=== PATIENT | female | born 1995 | race Caucasian/White ===

== ENCOUNTER → 2017-07-26 | Outpatient (CLI) | payer BC, MEDICAID, OTHER ==
[~2017-07-26] MED LIST: ACET1TAB43 PO; DOCU100C37 PO; FERR325T18 PO; IBUP-1773 PO; ONDA-42 SL
--- NOTE | 2017-07-26 14:16 | Diagnostic Imaging Report ---
TECHNIQUE: Multiple real-time grayscale images were obtained over the gravid uterus. COMPARISON: None FINDINGS: There are no prior studies available for comparison. This study was technically difficult due to the patient's body habitus. There is a single live fetus in transverse presentation. heart motion was noted and a rate of 160 bpm was recorded. There are no abnormalities identified although the intracranial contents and the heart are not well imaged. I would recommend that a short-term (4-6 weeks) follow-up exam be performed for further evaluation. The growth parameters are fairly uniform. The placenta is anterior and there is no previa. The amniotic fluid volume is within normal limits. IMPRESSION: 1. There is a single live fetus of approximately 20 weeks 2 days gestation +/-1.5 weeks. The EDC is December 04, 2017. 2. There are no abnormalities identified, but the heart and intracranial contents are not well visualized. Recommendations as above. 3. The growth parameters are fairly uniform. Biometrical measurements are as follows: Biparietal 5.0 cm, age 21 weeks 1 days. Head circumference 18.6 cm, age 21 weeks 0 days. Abdominal circumference 16.2 cm, age 21 weeks 3 days. Femur length 3.6 cm, age 21 weeks 4 days. Sonographic estimate age: 21 weeks 2 days. Sonographic estimated date of delivery: 12/04/17. Estimated Weight: 414 gm (+/- 61 gm). LMP percentile: 77%. heart rate: 160 beats per minute. number: 1 of 1. Dictated by: Dictated on workstation # [id number]
== END ==
LOC: RAD 11:58
PROVIDERS: ATTEND Obstetrics & Gynecology
DX: Z34.92 Encounter for supervision of normal pregnancy, unspecified, second trimester (principal); Z3A.20 20 weeks gestation of pregnancy
CPT/HCPCS: 76805

== ENCOUNTER 2017-12-02 18:55 | Inpatient (IN) | payer MEDICAID ==
[~2017-12-02] VITALS: Ht 165.1 cm; Wt 99.8 kg
--- OUTSIDE RECORDS SUMMARY | 2017-12-02 18:59 | XMS REPORT | Clinical Summary ---
Author Author [facility] Organization [facility] Address Unknown Phone Unavailable Care Team Providers Care Autopsy Pathologist Name Role Phone PCP Unavailable Source Comments Some departments are not documenting in the electronic medical record. If you do not see the information that you expected, contact Release of Information in the Health Information Management department at [phone] for further assistance in locating additional records.[facility] Allergies Not on File Current Medications No known medications Active Problems Not on file Social History Tobacco Use Types Packs/Day Years Used Date Never Assessed Sex Assigned at Date Recorded Not on file Last Filed Vital Signs Not on file Plan of Treatment Health Maintenance Due Date Last Done Comments PHYSICAL (COMPREHENSIVE) 2000 EXAM HPV VACCINES (1 of 3 - 2004 Female 3-dose series) PERTUSSIS VACCINE 2004 HIV SCREENING 2008 TETANUS VACCINE 2010 CERVICAL CANCER SCREENING 2014 INFLUENZA VACCINE 09/11/2017 Results Not on filefrom Last 3 Months
--- OUTSIDE RECORDS SUMMARY | 2017-12-02 18:59 | XMS REPORT ---
Author Author JP THOMAS Organization [facility] Address [address] [place] [address] Care Team Providers Care Firmware Manager Name Role Phone DELIO THOMASICE Unavailable PROBLEMS Type Condition ICD9-CM Code UQP24-TW Code Onset Dates Condition Status SNOMED Code Problem Irregular menstrual cycle 626.4 Active 68713322 Problem General counseling for prescription of oral contraceptives V25.01 Active 430178611560257 Problem Screening examination for venereal disease V74.5 Active 922512450 Problem Asthma, unspecified, unspecified status 493.90 Active 71003869 Problem General counseling for initiation of other contraceptive measures V25.02 Active [id number] ALLERGIES Substance Reaction Event Type Date Status N.K.D.A. Unknown Non Drug Allergy Jan, Unknown SOCIAL HISTORY No smoking Hx information available PLAN OF CARE Activity Details Follow Up prn Reason: VITAL SIGNS Height 66 in 2016-02-07 Temperature 97.9 degrees Fahrenheit 2016-02-07 Heart Rate 86 bpm 2016-02-07 Respiratory Rate 18 2016-02-07 Blood pressure systolic 122 mmHg 2016-02-07 Blood pressure diastolic 74 mmHg 2016-02-07 MEDICATIONS Medication Instructions Dosage Frequency Start Date End Date Duration Status Zyrtec Allergy 10 MG Orally Once a day 1 tablet 24h Jan, Feb, 30 day(s) Active Flonase Allergy Relief 50 MCG/ACT Nasally Once a day 1 spray in each nostril 24h Jan, 30 day(s) Active RESULTS No Results PROCEDURES Procedure Date Ordered Related Diagnosis Body Site Office Visit, Est Pt., Level 3 Feb 07, 2016 IMMUNIZATIONS No Known Immunizations
--- OUTSIDE RECORDS SUMMARY | 2017-12-02 18:59 | XMS REPORT ---
Author Author JP THOMAS Organization [facility] Address [address] [place] [address] Care Team Providers Care Product Manager E [employer] Name Role Phone DELIO THOMASICE Unavailable PROBLEMS Type Condition ICD9-CM Code AXI39-MR Code Onset Dates Condition Status SNOMED Code Problem Asthma, unspecified, unspecified status 493.90 Active 59695896 Problem Irregular menstrual cycle 626.4 Active 57080518 Problem Screening examination for venereal disease V74.5 Active 096933054 Problem General counseling for prescription of oral contraceptives V25.01 Active [id number] Problem General counseling for initiation of other contraceptive measures V25.02 Active [id number] ALLERGIES Substance Reaction Event Type Date Status N.K.D.A. Unknown Non Drug Allergy Feb, Unknown SOCIAL HISTORY No smoking Hx information available PLAN OF CARE Activity Details Follow Up prn Reason: VITAL SIGNS Height 66 in 2016-02-15 Weight 192 lbs 2016-02-15 Temperature 98.1 degrees Fahrenheit 2016-02-15 Heart Rate 88 bpm 2016-02-15 Respiratory Rate 18 2016-02-15 BMI 30.99 kg/m2 2016-02-15 Blood pressure systolic 132 mmHg 2016-02-15 Blood pressure diastolic 73 mmHg 2016-02-15 MEDICATIONS Medication Instructions Dosage Frequency Start Date End Date Duration Status Flonase Allergy Relief 50 MCG/ACT Nasally Once a day 1 spray in each nostril 24h Jan, 30 day(s) Active Amoxicillin 500 MG Orally every 12 hrs 1 tablet 12h Feb, Feb, 10 day(s) Active PredniSONE 20 MG Orally Once a day 2 tablet 24h Feb, Feb, 5 days Active Sprintec 28 0.25-35 MG-MCG Orally Once a day 1 tablet 24h 15 Jul, 2014 28 day(s) Active Zyrtec Allergy 10 MG Orally Once a day 1 tablet 24h Jan, Feb, 30 day(s) Active RESULTS No Results PROCEDURES Procedure Date Ordered Related Diagnosis Body Site Office Visit, Est Pt., Level 3 Feb 15, 2016 IMMUNIZATIONS No Known Immunizations
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
[2017-12-02] MEDS ORDERED: LACTATED RINGERS 1,000 ML IV SCH (19:06)
[2017-12-02 19:15] VITALS: BP_SYST 128; BP_SYST 132; BP_DIAS 75; BP_DIAS 76
[2017-12-02 19:45] LABS: BILIRUBIN,URINE NEGATIVE (NEGATIVE); CLARITY,URINE CLEAR; COLOR,URINE YELLOW; GLUCOSE, URINE (UA) NEGATIVE (NEGATIVE); KETONES,URINE NEGATIVE (NEGATIVE); LEUKOCYTE ESTERASE ,URINE 2+ (NEGATIVE); NITRITE,URINE NEGATIVE (NEGATIVE); PH,URINE 6.5 (5-9); PROTEIN,URINE NEGATIVE (NEGATIVE); UROBILINOGEN,URINE NORMAL (NORMAL)
[2017-12-02 19:47] LABS: BASOPHILS % (AUTO) 0 % (0-10); EOSINOPHILS % (AUTO) 0 % (0-10); HEMATOCRIT 30 % (35-52); HEMOGLOBIN 10.5 G/DL (11.5-16.0); LYMPHOCYTES # (AUTO) 2.1 X 10^3 (1.0-4.0); LYMPHOCYTES % (AUTO) 24 % (12-44); MEAN CORPUSCULAR HEMOGLOBIN 31 PG (25-34); MEAN CORPUSCULAR HGB CONC 35 G/DL (32-36); MEAN CORPUSCULAR VOLUME 89 FL (80-99); MEAN PLATELET VOLUME 12.4 FL (7.4-10.4); MONOCYTES # (AUTO) 0.7 X 10^3 (0.0-1.0); MONOCYTES % (AUTO) 9 % (0-12); NEUTROPHILS # (AUTO) 5.8 X 10^3 (1.8-7.8); NEUTROPHILS % (AUTO) 67 % (42-75); PLATELET COUNT 156 10^3/uL (130-400); RED BLOOD COUNT 3.42 10^6/uL (4.35-5.85); RED CELL DISTRIBUTION WIDTH 14.1 % (10.0-14.5); WHITE BLOOD COUNT 8.6 10^3/uL (4.3-11.0)
[2017-12-02 19:52] LABS: BACTERIA,URINE FEW /HPF
[2017-12-02] MEDS ORDERED: MISOPROSTOL 100 MCG (CYTOTEC) TAB PO ONE (20:00)
[2017-12-02] MEDS ORDERED: FLU QUADRIvalent (5+ YOA) 2018-2019 (AFLURIA) 0.5 ML IM ONE (20:30)
[2017-12-02] MEDS: D5 LR IV SOLUTION 1,000 ML IV SCH (20:30)
[2017-12-02 21:00] VITALS: BP 132/76
[2017-12-02 22:00] VITALS: BP 133/76
--- NOTE | 2017-12-02 22:17 | History & Physical-OB ---
OB - Chief Complaint & HPI Date/Time Date of Admission: Date of Admission: Dec 02, 2017 at 6:55 pm Date seen by a Provider: Dec 02, 2017 Time Seen by a Provider: 22:20 Chief Complaint/History OB-Reason for Admission/Chief: Induction of Labor Hx : 2 Hx Para: 1 Expected Date of Delivery: Dec 08, 2017 Gestational Age in Weeks: 39 Gestational Age in Days: 1 Admission Nurse Assessment Rev: Yes History of Labs A pos Antibody neg RI RPR NR HBsAg NR HIV NR GC neg GBS neg Allergies and Home Medications Allergies Coded Allergies: No Known Drug Allergies (Unverified , 12/09/13) Home Medications Ferrous Sulfate 325 Mg Tablet, 325 MG PO DAILY@08 Prescribed by: LUIS CASTILLO on 07/07/15 0938 Patient Home Medication List Home Medication List Reviewed: Yes OB - History Hx of Present Care: Yes Ultrasounds: Normal mid trimester US Obstetrical Complications: None Medical Complications: None Delivery History Hx Blood Disorders: No Adverse Rxn to Tranfusion: No Patient Past Medical History n/a Social History/Family History HIV/AIDS: No Recent Infectious Disease Expo: No Sexually Transmitted Disease: No Alcohol Use: Denies Use Recreational Drug Use: No Immunizations Hepatitis B: Yes OB - Admission Exam Physical Exam Vitals: Vital Signs HEENT: NCAT Heart: Rhythm Normal Lungs: Clear Abdomen: Gravid Extremities: Normal Reflexes: Normal Cervical Dilatation: 2cm Effacement: 75% Station: -1 Membranes: Intact Heart Rate: 130's Accelerations: Accelerations Present Decelerations: No Decelerations Short Term Variability: Present Water Systems Designer Variability: Average (6-25) Contractions on Admission: < 5 Minutes Apart Intensity: Mild Labs Laboratory Tests Test 12/02/17 18:55 12/02/17 19:25 Range/Units Urine Color YELLOW Urine Clarity CLEAR Urine pH 6.5 5-9 Urine Specific [place] 1.010 L 1.016-1.022 Urine Protein NEGATIVE NEGATIVE Urine Glucose (UA) NEGATIVE NEGATIVE Urine Ketones NEGATIVE NEGATIVE Urine Nitrite NEGATIVE NEGATIVE Urine Bilirubin NEGATIVE NEGATIVE Urine Urobilinogen NORMAL NORMAL MG/DL Urine Leukocyte Esterase 2+ H NEGATIVE Urine RBC (Auto) NEGATIVE NEGATIVE Urine RBC NONE /HPF Urine WBC NONE /HPF Urine Squamous Epithelial Cells 10-25 H /HPF Urine Crystals NONE /LPF Urine Bacteria FEW H /HPF Urine Casts NONE /LPF Urine Mucus NEGATIVE /LPF Urine Culture Indicated NO White Blood Count 8.6 4.3-11.0 10^3/uL Red Blood Count 3.42 L 4.35-5.85 10^6/uL Hemoglobin 10.5 L 11.5-16.0 G/DL Hematocrit 30 L 35-52 % Mean Corpuscular Volume 89 80-99 FL Mean Corpuscular Hemoglobin 31 25-34 PG Mean Corpuscular Hemoglobin Concent 35 32-36 G/DL Red Cell Distribution Width 14.1 10.0-14.5 % Platelet Count 156 130-400 10^3/uL Mean Platelet Volume 12.4 H 7.4-10.4 FL Neutrophils (%) (Auto) 67 42-75 % Lymphocytes (%) (Auto) 24 12-44 % Monocytes (%) (Auto) 9 0-12 % Eosinophils (%) (Auto) 0 0-10 % Basophils (%) (Auto) 0 0-10 % Neutrophils # (Auto) 5.8 1.8-7.8 X 10^3 Lymphocytes # (Auto) 2.1 1.0-4.0 X 10^3 Monocytes # (Auto) 0.7 0.0-1.0 X 10^3 Eosinophils # (Auto) 0.0 0.0-0.3 10^3/uL Basophils # (Auto) 0.0 0.0-0.1 10^3/uL OB - Assessment/Plan/Diagnosis Assessment Assessment: active labor Admission Dx 22 yo @ 39 weeks Elective induction GBS neg Admission Status: Inpatient Order (span 2 midnights) Reason for Inpatient Admission: induciton of labor Plan Plan: Induction LUIS CASTILLO DO Dec 02, 2017 10:17 pm
[2017-12-02] MEDS: CATHETER FLUSH 10 ML SYR IV SCH (22:52)
[2017-12-02 23:00] VITALS: BP 132/90
[2017-12-03] VITALS (40 sets, daily range): BP systolic 102–146; BP diastolic 53–85
[2017-12-03] MEDS: MISOPROSTOL 100 MCG (CYTOTEC) TAB PO SCH ×2 (00:24→02:43)
[2017-12-03] MEDS: D5 LR IV SOLUTION 1,000 ML IV SCH ×2 (04:25→11:49)
[2017-12-03] MEDS ORDERED: OXYTOCIN/NORMAL SALINE 500 ML IV SCH ×2 (09:06→14:07)
[2017-12-03] MEDS ORDERED: OXYTOCIN/NORMAL SALINE 500 ML IV ONE (09:07)
[2017-12-03] MEDS ORDERED: LIDOCAINE/EPI 2% 1:200,00 (XYLOCAINE) 10 ML VIAL ONE (11:06)
[2017-12-03] MEDS ORDERED: SUFENTA 0.6MCG/ML BUPIVA 0.125 100 ML ONE (11:07)
[2017-12-03] MEDS ORDERED: fentaNYL INJECTION 100 MCG/2 ML AMP ONE (11:33)
[2017-12-03] MEDS: CATHETER FLUSH 10 ML SYR IV SCH (11:49)
--- NOTE | 2017-12-03 14:12 | OB Labor & Delivery Record ---
L&D History Date of Service Date of Service: Dec 03, 2017 History Expected Date of Delivery: Dec 08, 2017 Gestational Age in Weeks: 39 Hx : 2 Hx Para: 1 Complications Events: Routine care Operative Indications (Cesarea: N/A-Vaginal Delivery Intrapartal Events: None L&D Stage1 Stage One Onset of Labor - Date: Dec 03, 2017 Monitors and Tracing Monitor Mode: External Heart Rate: 140 Monitor Decelerations: None Station: -2 Short Term Variability: Present Presentation: Vertex Vital Signs VS - Last 72 Hours, by Label 12/02/17 12/02/17 12/02/17 12/02/17 19:15 21:00 22:00 23:00 Temp 98.2 Pulse 85 78 77 81 Resp 18 18 18 18 B/P (MAP) 128/75 (92) 132/76 (94) 133/76 (95) 132/90 (104) O2 Delivery Room Air Room Air Room Air Room Air 12/03/17 12/03/17 12/03/17 12/03/17 00:00 01:00 02:00 03:00 Temp 97.7 Pulse 77 76 71 85 Resp 18 18 18 18 B/P (MAP) 122/71 (88) 120/66 (84) 123/69 (87) 136/75 (95) O2 Delivery Room Air Room Air Room Air Room Air 12/03/17 12/03/17 12/03/17 12/03/17 04:00 04:25 05:00 06:00 Temp 97.6 Pulse 76 75 77 Resp 18 18 18 B/P (MAP) 127/85 (99) 122/76 (91) 118/80 (93) O2 Delivery Room Air Room Air Room Air 12/03/17 07:00 Pulse 76 Resp 18 B/P (MAP) 130/72 (91) O2 Delivery Room Air Rupture of Membranes Spontaneous Ruture of Membrane: No Amniotic Membrane Rupture Time: 08:20 Amniotic Membrane Fluid Desc.: Clear Vaginal Bleeding Description: Normal Show Induction/Anesthesia Epidural Cath Placement - Time: 1200 L&D Stage2 Stage Two Stage II Date: Dec 03, 2017 Monitors and Tracing Monitor Mode: External Heart Rate: 140 Monitor Accelerations: Uniform Monitor Decelerations: Variable Longterm Variability: Average (6-10) Short Term Variability: Present Position: Right Occiput Anterior Presentation: Vertex Cord Descript/Complications Cord Vessel Description: 3 Vessels Delivery Type Infant Delivery Method: Spontaneous Vaginal Episiotomy/Perineal Laceration Laceraction(s)/Extensions: Yes Degree (describe repair) bilateral periurethral lac repaired using 3-0 rapide vicryl suture in usual fashion. Condition of Delivery 1 minute Comment: 8 5 minute Comment: 9 Notes male weight pending Condition of Condition of Infant: Living Exam: No Observed Abnormalities Resuscitation Resuscitation: N/A - Spontaneous Resp L&D Stage3 Stage Three Stage III Date: Dec 03, 2017 Pictocin Pitocin Administration Comment: 30 mu / wide open at delivery of placenta Placenta Delivery Placenta Delivery: Spontaneous Delivery Summary Summary Estimated blood loss (mL): 300 Attending at delivery: Luis Castillo DO Condition of Delivery Examined: Cervix Examined, Uterus Explored Post Hemorrhage: No Condition of Mother stable Condition of (s) stable LUIS CASTILLO DO Dec 03, 2017 2:12 pm
[2017-12-03] MEDS ORDERED: DIBUCAINE (NUPERCAINAL) 1% OINT 30 GM TOP PRN (14:15)
[2017-12-03] MEDS ORDERED: WITCH HAZEL(TUCKS) 40 EA JAR TOP PRN (14:15)
[2017-12-03] MEDS ORDERED: MEASLES,MUMPS,RUBELLA 1 EA INJ SQ ONE (14:15)
[2017-12-03] MEDS ORDERED: BENZOCAINE/MENTHOL (DERMOPLAST) 56 ML CAN TP PRN (14:15)
[2017-12-03] MEDS ORDERED: HYDROcodone/APAP 5 MG/325 MG (LORTAB) TAB PO PRN (14:15)
[2017-12-03] MEDS ORDERED: TETANUS,DIPTH,PERTUSS P/F (BOOSTRIX) 0.5 ML VIAL IM ONE (14:15)
[2017-12-03] MEDS: IBUPROFEN 600 MG (MOTRIN) TAB PO SCH ×2 (14:33→21:05)
[2017-12-03] MEDS ORDERED: LACTATED RINGERS 1,000 ML IV ONE (14:49)
[2017-12-03] MEDS ORDERED: METOCLOPRAMIDE INJ 10 MG/2 ML (REGLAN) IV PRN (15:00)
[2017-12-03] MEDS ORDERED: ONDANSETRON 4 MG/2 ML (SDV) Z0FRAN IV PRN (15:00)
[2017-12-03] MEDS ORDERED: NALOXONE 0.4 MG/ML 1 ML (NARCAN) VIAL IV PRN ×2 (15:00)
[2017-12-03] MEDS ORDERED: EPIDURAL (SUFENTA 0.6MCG/ML BUPIVA 0.125%) 100 ML BAG EPI PRN (15:00)
[2017-12-03] MEDS ORDERED: diphenhydrAMINE 50 MG/ML INJ (BENADRYL) IV PRN (15:00)
--- NOTE | 2017-12-03 18:42 | Discharge Inst-Women's Service ---
Discharge Inst-Women's Serv Depart Medication/Instructions New, Converted or Re-Newed RX: RX on Chart Consults/Follow Up Additional Follow Up: Yes Orders/Referrals Dr. Castillo in 6 weeks Activity Activity: Activity as Tolerated Driving Instructions: No Driving for 1 Week NO SMOKING: NO SMOKING Nothing Inside Vagina: No Douching, No [place], No Tampons Diet Discharge Diet: No Restrictions Symptoms to Report to : Bleeding Excessive, Pain Increased, Fever Over 101 Degrees F, Vaginal Bleeding Increase, Questions/Concerns For Any Problems or Questions: Contact Your Physician LUIS CASTILLO DO Dec 03, 2017 6:42 pm
[2017-12-03] MEDS ORDERED: DOCU100C37 PO (18:43)
[2017-12-03] MEDS ORDERED: Benzocaine/Menthol TP (18:43)
[2017-12-03] MEDS ORDERED: ACHD5005 PO (18:43)
[2017-12-03] MEDS ORDERED: IBUP-844 PO (18:43)
[2017-12-03] MEDS: DOCUSATE SODIUM 100 MG (COLACE) CAP PO SCH (21:05)
[2017-12-03] MEDS ORDERED: CATHETER FLUSH 10 ML SYR IV SCH (22:00)
[2017-12-04] VITALS: BP 116/71
[2017-12-04] MEDS: IBUPROFEN 600 MG (MOTRIN) TAB PO SCH ×3 (03:23→17:24)
[2017-12-04 04:00] VITALS: BP 114/74
[2017-12-04 05:02] LABS: BASOPHILS % (AUTO) 0 % (0-10); EOSINOPHILS # (AUTO) 0.1 10^3/uL (0.0-0.3); EOSINOPHILS % (AUTO) 1 % (0-10); HEMATOCRIT 28 % (35-52); HEMOGLOBIN 9.7 G/DL (11.5-16.0); LYMPHOCYTES # (AUTO) 2.3 X 10^3 (1.0-4.0); LYMPHOCYTES % (AUTO) 27 % (12-44); MEAN CORPUSCULAR HEMOGLOBIN 31 PG (25-34); MEAN CORPUSCULAR HGB CONC 34 G/DL (32-36); MEAN CORPUSCULAR VOLUME 90 FL (80-99); MEAN PLATELET VOLUME 12.2 FL (7.4-10.4); MONOCYTES # (AUTO) 0.7 X 10^3 (0.0-1.0); MONOCYTES % (AUTO) 8 % (0-12); NEUTROPHILS # (AUTO) 5.5 X 10^3 (1.8-7.8); NEUTROPHILS % (AUTO) 64 % (42-75); PLATELET COUNT 135 10^3/uL (130-400); RED BLOOD COUNT 3.13 10^6/uL (4.35-5.85); RED CELL DISTRIBUTION WIDTH 14.3 % (10.0-14.5); WHITE BLOOD COUNT 8.6 10^3/uL (4.3-11.0)
--- NOTE | 2017-12-04 06:56 | Anesthesia-Regional Post-Op ---
Regional Patient Condition Mental Status: Alert, Oriented x3 Circulation: Same as Pre-Op Headache: Absent Sensation: Full Recovery Motor Block: Absent Post Op Complications Complications None Follow Up Care/Instructions Patient Instructions None needed. Anesthesia/Patient Condition Patient is doing well, no complaints, stable vital signs, no apparent adverse anesthesia problems. No complications reported per nursing. ISI MAE CRNA Dec 04, 2017 06:56
[2017-12-04] MEDS ORDERED: PRENATAL VITAMIN 1 EA TAB PO SCH (07:00)
[2017-12-04 08:00] VITALS: BP 115/78
[2017-12-04] MEDS ORDERED: FERROUS SULF 325 MG (IRON) TAB PO SCH (08:00)
[2017-12-04] MEDS: DOCUSATE SODIUM 100 MG (COLACE) CAP PO SCH (09:48)
--- NOTE | 2017-12-04 12:36 | Postpartum Progress Note ---
Note Note Day # 1 Subjective: Patient is without complaints. Ambulating, voiding. Tolerating a regular diet without nausea or vomiting. Normal lochia. Pain is well controlled with oral pain medications. Objective: Vital Sign - Last 24 Hours 12/03/17 12/03/17 12/03/17 12/03/17 12:40 12:45 12:50 12:55 Pulse 85 76 81 81 Resp 18 18 18 18 B/P (MAP) 119/58 (78) 115/57 (76) 114/61 (78) 111/62 (78) Pulse Ox 100 100 100 100 O2 Delivery Room Air Room Air Room Air Room Air 12/03/17 12/03/17 12/03/17 12/03/17 13:00 13:20 13:35 13:50 Pulse 71 74 72 92 Resp 18 18 18 18 B/P (MAP) 110/57 (74) 123/63 (83) 111/56 (74) Pulse Ox 100 100 100 100 O2 Delivery Room Air Room Air Room Air Room Air 12/03/17 12/03/17 12/03/17 12/03/17 14:00 14:05 14:18 14:33 Temp 97.1 Pulse 92 85 85 77 Resp 18 18 18 18 B/P (MAP) 123/60 (81) 123/60 (81) 117/58 (77) 114/53 (73) O2 Delivery Room Air Room Air Room Air Room Air 12/03/17 12/03/17 12/03/17 12/03/17 14:49 15:03 15:18 15:33 Pulse 81 76 76 78 Resp 18 18 18 18 B/P (MAP) 102/55 (71) 109/56 (73) 106/57 (73) 108/55 (72) O2 Delivery Room Air Room Air Room Air Room Air 12/03/17 12/04/17 12/04/17 12/04/17 20:00 00:00 04:00 08:00 Temp 98.0 97.8 97.3 98.2 Pulse 76 84 88 80 Resp 18 18 18 18 B/P (MAP) 110/74 (86) 116/71 (86) 114/74 (87) 115/78 (90) Pulse Ox 99 98 97 99 O2 Delivery Room Air Room Air Room Air Room Air Intake and Output 12/03/17 12/03/1718 15:00 23:00 07:00 Intake Total 2900 ml 875 ml Balance 2900 ml 875 ml Physical Exam: General - Alert and oriented, no apparent distress Abdomen - Soft, appropriately tender to palpation, non-distended, fundus firm at umbilicus Extremities - no edema, negative Juan Francisco's bilaterally Assessment: PPD 1 NVD Acute blood loss anemia Plan: Routine care. Encourage breast feeding. Encourage ambulation. Ferrous sulfate supplementation. Plan for discharge today Vitals - Labs Vital Signs - I&O Vital Signs Date Time Temp Pulse Resp B/P (MAP) Pulse Ox O2 Delivery O2 Flow Rate FiO2 12/04/17 08:00 98.2 80 18 115/78 (90) 99 Room Air 12/04/17 04:00 97.3 88 18 114/74 (87) 97 Room Air 12/04/17 00:00 97.8 84 18 116/71 (86) 98 Room Air 12/03/17 20:00 98.0 76 18 110/74 (86) 99 Room Air 12/03/17 15:33 78 18 108/55 (72) Room Air 12/03/17 15:18 76 18 106/57 (73) Room Air 12/03/17 15:03 76 18 109/56 (73) Room Air 12/03/17 14:49 81 18 102/55 (71) Room Air 12/03/17 14:33 77 18 114/53 (73) Room Air 12/03/17 14:18 97.1 85 18 117/58 (77) Room Air 12/03/17 14:05 85 18 123/60 (81) Room Air 12/03/17 14:00 92 18 123/60 (81) Room Air 12/03/17 13:50 92 18 100 Room Air 12/03/17 13:35 72 18 111/56 (74) 100 Room Air 12/03/17 13:20 74 18 123/63 (83) 100 Room Air 12/03/17 13:00 71 18 110/57 (74) 100 Room Air 12/03/17 12:55 81 18 111/62 (78) 100 Room Air 12/03/17 12:50 81 18 114/61 (78) 100 Room Air 12/03/17 12:45 76 18 115/57 (76) 100 Room Air 12/03/17 12:40 85 18 119/58 (78) 100 Room Air I & O 12/04/17 07:00 Intake Total 3775 ml Balance 3775 ml Labs Laboratory Tests 12/04/17 04:36: White Blood Count 8.6, Red Blood Count 3.13L, Hemoglobin 9.7L, Hematocrit 28L, Mean Corpuscular Volume 90, Mean Corpuscular Hemoglobin 31, Mean Corpuscular Hemoglobin Concent 34, Red Cell Distribution Width 14.3, Platelet Count 135, Mean Platelet Volume 12.2H, Neutrophils (%) (Auto) 64, Lymphocytes (%) (Auto) 27 , Monocytes (%) (Auto) 8, Eosinophils (%) (Auto) 1, Basophils (%) (Auto) 0, Neutrophils # (Auto) 5.5, Lymphocytes # (Auto) 2.3, Monocytes # (Auto) 0.7, Eosinophils # (Auto) 0.1, Basophils # (Auto) 0.0 LUIS CASTILLO DO Dec 04, 2017 12:36 pm
[2017-12-04 12:50] VITALS: BP 109/69
[2017-12-04] MEDS ORDERED: FLU QUADRIvalent (5+ YOA) 2018-2019 (AFLURIA) 0.5 ML IM ONE (16:48)
[2017-12-04] MEDS ORDERED: TETANUS,DIPTH,PERTUSS P/F (BOOSTRIX) 0.5 ML VIAL IM ONE (17:11)
[2017-12-04 18:00] VITALS: BP 109/69
== END 2017-12-04 18:00 | disposition home or self-care (01) | DRG 807 ==
LOC: LDRP 18:55
PROVIDERS: ADMIT Obstetrics & Gynecology; ATTEND Obstetrics & Gynecology
PROC: 3E0DXGC Introduction of Other Therapeutic Substance into Mouth and Pharynx, External Approach (ICD-10-PCS; 2017-12-02)
PROC: 10E0XZZ Delivery of Products of Conception, External Approach (ICD-10-PCS; principal; 2017-12-03)
PROC: 0UQMXZZ Repair Vulva, External Approach (ICD-10-PCS; 2017-12-03)
DX: O90.81 Anemia of the puerperium (principal); O71.82 Other specified trauma to perineum and vulva; Z3A.39 39 weeks gestation of pregnancy; Z37.0 Single live birth; Z23 Encounter for immunization; Z87.891 Personal history of nicotine dependence
CPT/HCPCS: 36415; 81000; 85025; 86850; 86900; 86901; 90471; 90686; 90715